=== PATIENT | male | born 1985 | race Caucasian/White ===

== ENCOUNTER 2019-01-03 20:12 | Emergency (ER) | payer SELFPAY ==
[~2019-01-03] VITALS: Ht 182.9 cm; Wt 98.9 kg
[2019-01-03] MEDS ORDERED: ADACEL/BOOSTRIX VACCINE (DIPHTH/PERTUSS/ACELL/TETANUS)0.5ML SYR (90715) IM ONE (23:00)
[2019-01-03 23:36] VITALS: BP 125/84
--- NOTE | 2019-01-04 08:37 | REP ---
Left tib-fib series: Four views. History: Laceration rule out foreign body. Findings: Four views of the left calf show normal bones and joints. No opaque foreign body is seen. No fractures noted. Impression: Negative radiographs of the left calf. No foreign body seen. Electronically Signed by Mark Kohler MD 01/04/2019 08:28 A
== END 2019-01-03 23:37 | disposition home or self-care (01) ==
LOC: M ED 20:12
DX: S81.812A Laceration without foreign body, left lower leg, initial encounter (principal); W25.XXXA Contact with sharp glass, initial encounter; Y92.098 Other place in other non-institutional residence as the place of occurrence of the external cause; F17.210 Nicotine dependence, cigarettes, uncomplicated; Z88.0 Allergy status to penicillin